=== PATIENT | male | born 1930 | race Caucasian/White ===

== ENCOUNTER 2018-05-10 07:59 | Emergency (ER) | payer MEDICARE ==
[~2018-05-10] VITALS: Ht 175.3 cm; Wt 72.6 kg
[2018-05-10] MEDS ORDERED: MELOXICAM7.5 MG PO (08:21)
[2018-05-10] MEDS ORDERED: CLINDAMYCIN HC300 MG PO (08:21)
== END 2018-05-10 09:01 | disposition home or self-care (01) ==
LOC: ED 07:59
DX: L03.011 Cellulitis of right finger (principal); Z88.0 Allergy status to penicillin
CPT/HCPCS: 73140; 99283